=== PATIENT | male | born 2000 | race African-American/Black ===

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

== ENCOUNTER 2018-01-05 17:23 | Emergency (ER) | payer OTHER ==
[2018-01-05 17:55] LABS: AMORPHOUS SEDIMENT RFX SMALL (NEGATIVE); KETONE, URINE AUTO RFX NEGATIVE (NEGATIVE); MUCUS, URINE RFX SMALL (NEGATIVE); NITRITE, URINE AUTO RFX NEGATIVE (NEGATIVE); RBC, URINE AUTO RFX 1 /HPF (0-3); SPECIFIC GRAVITY UR AUTO RFX 1.025 (1.002-1.035); SQUAM EPITHELIAL CELL UR AURFX 1 /HPF (0-6)
[2018-01-05 17:56] LABS: LEUKOCYTE ESTERASE UR AUTO RFX 3+ (NEGATIVE); WBC, URINE AUTO RFX 63 /HPF (0-3)
[2018-01-05] MEDS: AZITHROMYCIN 250 MG TAB PO (18:42)
[2018-01-05] MEDS: cefTRIAXone SOD 1 GM VIAL (J0696) IM (18:43)
[2018-01-05 20:07] LABS: CHLAMYDIA DNA AMPLIFICATION POSITIVE (NEGATIVE); GC DNA AMPLIFICATION POSITIVE (NEGATIVE)
== END 2018-01-05 19:12 | disposition home or self-care (01) ==
LOC: M ED 17:23
DX: N34.2 Other urethritis (principal); Z20.2 Contact with and (suspected) exposure to infections with a predominantly sexual mode of transmission; F17.210 Nicotine dependence, cigarettes, uncomplicated
CPT/HCPCS: J0696

== ENCOUNTER 2019-01-31 17:10 | Emergency (ER) | payer OTHER, SELFPAY ==
[~2019-01-31] VITALS: Ht 172.7 cm; Wt 60.0 kg
[~2019-01-31 17:10] MED LIST: AUGM500T34 PO
[2019-01-31] MEDS ORDERED: LIDOCAINE 1% SDV 5 ML VIAL DILUENT ONE (18:15)
[2019-01-31] MEDS ORDERED: cefTRIAXone SOD 250 MG VIAL (J0696) IM ONE (18:15)
[2019-01-31] MEDS ORDERED: AZITHROMYCIN 250 MG TAB PO ONE (18:15)
[2019-01-31 18:40] VITALS: BP 120/73
[2019-01-31 20:19] LABS: CHLAMYDIA DNA AMPLIFICATION NEGATIVE (NEGATIVE); GC DNA AMPLIFICATION NEGATIVE (NEGATIVE)
== END 2019-01-31 18:47 | disposition home or self-care (01) ==
LOC: M ED 17:10
DX: Z20.2 Contact with and (suspected) exposure to infections with a predominantly sexual mode of transmission (principal)
CPT/HCPCS: 87491; 87591; 96372; 99283; J0696